=== PATIENT | female | born 1980 | race Caucasian/White ===

== ENCOUNTER 2016-06-28 09:16 | Emergency (ER) | payer BC, MEDICAID ==
[~2016-06-28] VITALS: Ht 165.1 cm; Wt 73.0 kg
[2016-06-28 10:20] VITALS: BP 14/87
[2016-06-28] MEDS ORDERED: ACETAMINOPHEN 325MG TABLET PO ONE (10:45)
== END 2016-06-28 12:41 | disposition home or self-care (01) ==
LOC: ER 11:46
DX: S93.402A Sprain of unspecified ligament of left ankle, initial encounter (principal); Y93.01 Activity, walking, marching and hiking; Y92.89 Other specified places as the place of occurrence of the external cause; M54.5 Low back pain; M79.89 Other specified soft tissue disorders
CPT/HCPCS: 73610; 73630; 81025; 99284

== ENCOUNTER 2018-04-14 20:58 | Inpatient (IN) | payer BC ==
[~2018-04-14] VITALS: Ht 160 cm; Wt 86.6 kg
[2018-04-15] MEDS ORDERED: SODIUM CHLORIDE 0.9% 1,000 ML IV ONE
[2018-04-15] MEDS ORDERED: AMPICILLIN SOD/SULBACTAM NA 3 G in SODIUM CHLORIDE 0.9% 100 ML IV SCH ×2
[2018-04-15 00:58] LABS: BASOPHILS % 0.3 % (0.0-2.0); EOSINOPHILS % 0.8 % (0.0-5.0); HEMOGLOBIN. 12.7 g/dL (12.0-16.0); MEAN CORPUSCULAR HEMOGLOBIN 30.3 pg (28.0-32.0); MEAN CORPUSCULAR VOLUME 90.4 fL (81.0-99.0); MEAN PLATELET VOLUME 8.6 fl (7.4-10.4); MONOCYTES % 6.7 % (2.0-8.0); NEUTROPHILS % 69.2 % (40.0-76.0); PLATELET 242 x1000/uL (130-400)
[2018-04-15 01:03] LABS: CHLORIDE 106 mEq/L (98-107)
[2018-04-15] MEDS ORDERED: IOHEXOL-300 100 ML BOTTLE ONE (03:59)
[2018-04-15] MEDS ORDERED: HYDROCODONE/ACETAMINOPHEN 5/325MG TABLET PO PRN (06:00)
[2018-04-15 08:00] VITALS: BP 129/83
[2018-04-15 09:00] VITALS: BP 129/8
[2018-04-15] MEDS: AMPICILLIN SOD/SULBACTAM NA 3 G in SODIUM CHLORIDE 0.9% 100 ML IV SCH ×3 (11:27→20:16)
[2018-04-15] MEDS: DEXT 5%/0.45% NACL KCL 20MEQ/L 1,000 ML IV SCH ×2 (11:27→23:20)
[2018-04-15 12:00] VITALS: BP 112/65
[2018-04-15] MEDS ORDERED: INFLUENZA VACCINE IM ONE (13:00)
[2018-04-15 16:00] VITALS: BP 122/69
[2018-04-15 20:00] VITALS: BP 104/65
[2018-04-15] MEDS: PIPERACILLIN/TAZ 3.375G PREMIX 50 ML IV SCH (22:24)
[2018-04-16] VITALS: BP 122/64
[2018-04-16 04:00] VITALS: BP 107/56
[2018-04-16] MEDS: PIPERACILLIN/TAZ 3.375G PREMIX 50 ML IV SCH ×2 (04:02→10:52)
[2018-04-16 08:00] VITALS: BP 120/76
[2018-04-16 12:00] VITALS: BP 117/67
[2018-04-16 13:19] VITALS: BP 117/67
== END 2018-04-16 15:04 | disposition home or self-care (01) | DRG 158 ==
LOC: ER 21:33 → 6EST 04-15 05:11 → EDBEDREQTM 04-15 05:16 → EDBEDREQ 04-15 05:16 → ENRESERV 04-15 07:17
PROVIDERS: ADMIT Internal Medicine Critical Care Medicine; ATTEND Internal Medicine Critical Care Medicine
DX: K04.7 Periapical abscess without sinus (principal); L03.211 Cellulitis of face; K02.9 Dental caries, unspecified
CPT/HCPCS: 36415; 70487; 80048; 90686; 96365; 96375; 99285; J0295; J2543; J7030; J7040; J7050; Q9967